=== PATIENT | female | born 2000 | race Two or more races ===

== ENCOUNTER 2023-06-10 04:49 | Emergency (ER) | payer BC ==
[~2023-06-10] VITALS: Ht 157.5 cm; Wt 75.7 kg
[2023-06-10 05:48] VITALS: BP 111/72; TEMP 98.2; O2SAT 96
[2023-06-10] MEDS ORDERED: CYCL5TAB PO (06:46)
[2023-06-10] MEDS ORDERED: IBUP-1955 PO (06:46)
[2023-06-10] MEDS ORDERED: LIDO30AD10 TP (06:46)
== END 2023-06-10 06:51 | disposition home or self-care (01) ==
LOC: ER 04:55
DX: S29.012A Strain of muscle and tendon of back wall of thorax, initial encounter (principal); S76.912A Strain of unspecified muscles, fascia and tendons at thigh level, left thigh, initial encounter; M54.50 Low back pain, unspecified; V89.2XXA Person injured in unspecified motor-vehicle accident, traffic, initial encounter; Y93.89 Activity, other specified; Y92.89 Other specified places as the place of occurrence of the external cause; Y99.8 Other external cause status